=== PATIENT | male | born 1955 | race Caucasian/White ===

== ENCOUNTER → 2017-06-09 | Outpatient (CLI) | payer MEDICARE ==
[2017-06-09 09:36] LABS: Albumin 4.6 g/dL (3.5-5.0); Calcium 9.6 mg/dL (8.4-10.2); Magnesium 1.9 mg/dL (1.6-2.3); Phosphorus 3.6 mg/dL (2.5-4.5); Potassium 4.8 mmol/L (3.5-5.1); Total Bilirubin 0.7 mg/dL (0.2-1.3); Total Protein 8.1 g/dL (6.3-8.2); Uric Acid 8.6 mg/dL (3.5-8.5)
[2017-06-09 09:39] LABS: Basophils % (A) 1 %; Eosinophils # (A) 0.2 k/uL (0-0.7); Eosinophils % (A) 5 %; HGB 13.5 gm/dL (13.0-17.5); Lymphocytes # (A) 0.7 k/uL (1.0-4.8); Lymphocytes % (A) 20 %; MCH 27.4 pg (25.0-35.0); MCHC 33.7 g/dL (31.0-37.0); MCV 81.4 fL (80.0-100.0); Mean Platelet Volume 7.7; Monocytes # (A) 0.4 k/uL (0-1.0); Monocytes % (A) 12 %; Neutrophils % (A) 58 %; Platelet Count 168 k/uL (150-450); RBC 4.91 m/uL (4.30-5.90); WBC 3.4 k/uL (3.8-10.6)
[2017-06-09 09:53] LABS: T4, Free (Free Thyroxine) 1.01 ng/dL (0.78-2.19)
[2017-06-09 10:07] LABS: Prostate Specific Antigen 2.2 ng/mL (0.00-4.00)
[2017-06-09 15:49] LABS: Parathyroid Hormone Intact 56.9 pg/mL (14.0-72.0)
[2017-06-09 16:51] LABS: Iron Saturation 19.79 (15.00-50.00)
[2017-06-09 17:00] LABS: Vitamin D 25 Hydroxy 28.7 ng/mL (30.0-100.0)
[2017-06-09 20:04] LABS: Hemoglobin A1C 5.5 % (4.0-6.0)
== END | disposition home or self-care (01) ==
LOC: LABWHC1 08:32
PROVIDERS: ATTEND Internal Medicine
DX: M10.00 Idiopathic gout, unspecified site (principal); N18.3 Chronic kidney disease, stage 3 (moderate); B18.2 Chronic viral hepatitis C; N40.0 Benign prostatic hyperplasia without lower urinary tract symptoms
CPT/HCPCS: 36415; 80053; 80061; 82306; 82550; 82728; 83036; 83540; 83550; 83735; 83970; 84100; 84153; 84439; 84443; 84550; 85025

== ENCOUNTER 2018-09-20 10:56 | Emergency (ER) | payer MEDICARE ==
[2018-09-20 11:10] VITALS: BP 125/83; PULSE 75; RESP 16; TEMP 97.5
[2018-09-20] MEDS ORDERED: LIDOCAINE 1% INJ 10MG/ML (20 ML MDV) SQ ONE (11:21)
[2018-09-20] MEDS ORDERED: CLINDAMYCIN 150 MG CAP PO STA (11:36)
--- NOTE | 2018-09-20 11:45 | ED ---
General Adult HPI - General Chief complaint: Skin/Abscess/Foreign Body Stated complaint: cyst Time Seen by Provider: 09/20/18 11:15 Source: patient, family, RN notes reviewed Mode of arrival: ambulatory Limitations: no limitations - History of Present Illness Initial comments: Patient is a pleasant [age]-year-old male presenting to the emergency Depart ment with complaints of pilonidal cyst. Patient did have similar episode once previously several years ago. Patient did have it drained and provided by surgeon, Dr. Johnson. Patient noticed symptoms returning a couple of days ago. Patient states it was draining however seem so stopped. Patient has some discomfort in the pilonidal region. No fevers. No other area of discomfort. Patient is on cyclosporine secondary to previous transplant. - Related Data Home Medications Medication Instructions Recorded Confirmed Mycophenolate Mofetil [Cellcept] 150 mg PO DAILY 08/02/13 08/02/13 Pegasus 90 mg PO WEEKLY 08/02/13 08/02/13 Ribibrian 1 tab PO DAILY 08/02/13 08/02/13 Solvaldi 1 tab PO DAILY 08/02/13 08/02/13 Ursodiol [Telma] 250 mg PO BID 08/02/13 08/02/13 cycloSPORINE [Sandimmune] 150 mg PO DAILY 08/02/13 08/02/13 Previous Rx's Medication Instructions Recorded Cephalexin [Keflex] 500 mg PO Q6HR 10 Days cap 08/02/13 Indomethacin [Indocin] 50 mg PO Q8HR #42 capsule 08/02/13 oxyCODONE HCL/ACETAMINOPHEN 1 each PO Q6HR PRN #12 tab 08/02/13 [Percocet 5-325 mg] Clindamycin [Cleocin] 300 mg PO Q6H #80 capsule 09/20/18 Allergies Allergy/AdvReac Type Severity Reaction Status Date / Time No Known Allergies Allergy Verified 09/20/18 11:09 Review of Systems ROS Statement: Those systems with pertinent positive or pertinent negative responses have been documented in the HPI. ROS Other: All systems not noted in ROS Statement are negative. Constitutional: Denies: fever, chills Eyes: Denies: eye pain ENT: Denies: ear pain Respiratory: Denies: cough Cardiovascular: Denies: chest pain Endocrine: Denies: fatigue Gastrointestinal: Denies: abdominal pain Genitourinary: Denies: dysuria Musculoskeletal: Denies: back pain Skin: Reports: as per HPI Neurological: Denies: headache Past Medical History Past Medical History: Liver Disease Additional Past Medical History / Comment(s): HEPATITIS C- BEEN DORMANT NOW FOR 2 YRS History of Any Multi-Drug Resistant Organisms: None Reported Past Surgical History: Orthopedic Surgery Additional Past Surgical History / Comment(s): liver transplant Past Psychological History: No Psychological Hx Reported Smoking Status: Never smoker Past Alcohol Use History: None Reported Past Drug Use History: None Reported General Exam Limitations: no limitations General appearance: alert, in no apparent distress Head exam: Present: atraumatic Eye exam: Present: normal appearance Respiratory exam: Present: normal lung sounds bilaterally Cardiovascular Exam: Present: regular rate, normal rhythm GI/Abdominal exam: Present: soft. Absent: tenderness Extremities exam: Present: normal inspection Neurological exam: Present: alert Psychiatric exam: Present: normal affect, normal mood Skin exam: Present: other (Bilateral region with area of mild cellulitic change approximate 2 cm. There is a central area approximately half centimeter with raised and fluctuance consistent with early abscess formation.) Course Vital Signs 09/20/18 11:07 Temperature 97.5 F L Pulse Rate 75 Respiratory 16 Rate Blood Pressure 125/83 O2 Sat by Pulse 99 Oximetry Procedures - Incision & Drainage Consent Obtained: verbal consent Site: other (Pilonidal) Size (cm): 1 Anesthetic Used: lidocaine 1% I&D Cleaning Method: Betadine Scalpel Used: #11 I&D Drainage Obtained: Pus (Approximate one cc) Culture Obtained?: Yes Patient Tolerated Procedure: well, no complications Medical Decision Making - Medical Decision Making Patient had minimal early abscess formation. Area was opened. Area is too small to pack. Secondary to patient's history he'll be covered with antibiotics and recommended close follow-up. Dr. Johnson is currently out of town. Patient will be provided follow-up for on-call surgeon and primary care physician. Disposition Clinical Impression: Pilonidal cyst with abscess Disposition: HOME SELF-CARE Condition: Stable Instructions (If sedation given, give patient instructions): Abscess (ED), Pilonidal Cyst (ED) Additional Instructions: Start antibiotics today. Follow-up with primary care physician or surgeon tomorrow. Return for fevers, illness, weakness, increased rash or redness, increased drainage, worsening symptoms or any other concerns at all. Please also follow-up with your transplant doctor in the next day or 2. [id number] sitz bath's. Keep area clean. Twice daily wash with soap and water. Have area inspected twice daily. Prescriptions: Clindamycin [Cleocin] 300 mg PO Q6H #80 capsule Is patient prescribed a controlled substance at d/c from ED?: No Referrals: Dayday Anthony MD [Primary Care Provider] - 1-2 days Manish Velasco MD [STAFF PHYSICIAN] - 1-2 days Time of Disposition: 11:44
== END 2018-09-20 11:55 | disposition home or self-care (01) ==
LOC: EC 10:56
DX: L05.01 Pilonidal cyst with abscess (principal); Z94.4 Liver transplant status
CPT/HCPCS: 87070; 87205; 99283; 10080; J2001

== ENCOUNTER → 2020-11-30 | Outpatient (CLI) | payer MEDICARE ==
--- NOTE | 2020-11-30 15:28 | NM ---
EXAMINATION TYPE: NM bone scan whole body DATE OF EXAM: 11/30/2020 COMPARISON: NONE HISTORY: Low back pain Delayed whole-body scanning was performed following the injection of 22.8 mCi Tc 99m MDP. Images acq uired 3 hours post injection. FINDINGS: Bandlike area of increased pharmaceutical uptake is present at what is believed to be L2. More mild u ptake is present in the lower lumbar spine. Uptake within the shoulders, elbows, wrists, hands, knees , feet and ankles is likely degenerative. Uptake in the cervical spine is likely due to facet arthrop athy change. IMPRESSION: Findings may represent osteoporotic compression fracture at L2, correlate. Osteoarthritic change.
== END | disposition home or self-care (01) ==
LOC: RADNMMAIN 09:45
PROVIDERS: ATTEND Physical Medicine & Rehabilitation
DX: M17.0 Bilateral primary osteoarthritis of knee (principal); M19.071 Primary osteoarthritis, right ankle and foot; M19.072 Primary osteoarthritis, left ankle and foot; M19.012 Primary osteoarthritis, left shoulder; M19.011 Primary osteoarthritis, right shoulder
CPT/HCPCS: 78306; A9503

== ENCOUNTER 2021-08-17 08:30 | Observation (INO) | payer MEDICARE ==
[2021-08-17 09:57] LABS: ALT 28 U/L (4-49); AST 40 U/L (17-59); African American GFR (CKD) 41 (>60 ml/min/1.73 sqM); Albumin 4.4 g/dL (3.5-5.0); Alkaline Phosphatase 89 U/L (38-126); Anion Gap 8 mmol/L; Blood Urea Nitrogen 38 mg/dL (9-20); C Reactive Protein <0.5 mg/dL (<1.0); Calcium 8.9 mg/dL (8.4-10.2); Carbon Dioxide 23 mmol/L (22-30); Chloride 109 mmol/L (98-107); Glucose 111 mg/dL (74-99); Non-African American GFR(CKD) 36 (>60 ml/min/1.73 sqM); Potassium 4.7 mmol/L (3.5-5.1); Sodium 140 mmol/L (137-145); Total Bilirubin 0.5 mg/dL (0.2-1.3); Total Protein 7.4 g/dL (6.3-8.2)
--- NOTE | 2021-08-17 10:03 | XR ---
EXAMINATION TYPE: XR hand complete LT DATE OF EXAM: 08/17/2021 COMPARISON: NONE HISTORY: Pain TECHNIQUE: Three views are submitted. FINDINGS: The osseous structures are intact. There is severe narrowing in MCP joints bilaterally with hypertrop hic spurring of the second, third and fourth digits. Mild narrowing of the scaphoid radial joint. IMPRESSION: 1. Severe arthropathy of the second through fourth digits.
[2021-08-17 10:06] LABS: Basophils % (A) 1 %; Eosinophils # (A) 0.2 k/uL (0-0.7); Eosinophils % (A) 5 %; HCT 33.4 % (39.0-53.0); HGB 11.6 gm/dL (13.0-17.5); Lymphocytes # (A) 0.9 k/uL (1.0-4.8); Lymphocytes % (A) 21 %; MCH 29.7 pg (25.0-35.0); MCHC 34.7 g/dL (31.0-37.0); MCV 85.6 fL (80.0-100.0); Mean Platelet Volume 7.8; Monocytes # (A) 0.3 k/uL (0-1.0); Monocytes % (A) 8 %; Neutrophils # (A) 2.7 k/uL (1.3-7.7); Neutrophils % (A) 63 %; Platelet Count 219 k/uL (150-450); WBC 4.2 k/uL (3.8-10.6)
--- NOTE | 2021-08-17 10:27 | ED ---
Extremity Problem HPI - General Chief complaint: Extremity Problem,Nontraumatic Stated complaint: hand swelling Time Seen by Provider: 08/17/21 08:42 Source: patient, RN notes reviewed Mode of arrival: ambulatory Limitations: no limitations - History of Present Illness Initial comments: This a 65-year-old male presents emergency Department with chief complaint of left hand wrist infection. Patient states that 3 weeks ago he a small area of basal cell carcinoma which was removed by shop clerk. Patient states that shortly after he developed increasing redness and swelling. He has been on multiple antibiotics with no significant improvement. He is sent in by dermatology for field outpatient treatment and cellulitis is concerning as is liver transplant patient. Patient reports no fever or sweats. Patient states is moderate discomfort. - Related Data Home Medications Medication Instructions Recorded Confirmed Pegasus 90 mg PO WEEKLY 08/02/13 08/02/13 Ribibrian 1 tab PO DAILY 08/02/13 08/02/13 Solvaldi 1 tab PO DAILY 08/02/13 08/02/13 cycloSPORINE [Sandimmune] 150 mg PO DAILY 08/02/13 08/02/13 mycophenolate mofetiL [Cellcept] 150 mg PO DAILY 08/02/13 08/02/13 ursodioL [Telma] 250 mg PO BID 08/02/13 08/02/13 Previous Rx's Medication Instructions Recorded Cephalexin [Keflex] 500 mg PO Q6HR 10 Days cap 08/02/13 Indomethacin [Indocin] 50 mg PO Q8HR #42 capsule 08/02/13 oxyCODONE HCL/ACETAMINOPHEN 1 each PO Q6HR PRN #12 tab 08/02/13 [Percocet 5-325 mg] Clindamycin [Cleocin] 300 mg PO Q6H #80 capsule 09/20/18 Allergies Allergy/AdvReac Type Severity Reaction Status Date / Time No Known Allergies Allergy Verified 08/17/21 08:34 Review of Systems ROS Statement: Those systems with pertinent positive or pertinent negative responses have been documented in the HPI. ROS Other: All systems not noted in ROS Statement are negative. Past Medical History Past Medical History: Cancer, Liver Disease Additional Past Medical History / Comment(s): HEPATITIS C- BEEN DORMANT NOW FOR 2 YRS, basil cell skin ca History of Any Multi-Drug Resistant Organisms: None Reported Past Surgical History: Orthopedic Surgery Additional Past Surgical History / Comment(s): liver transplant Past Psychological History: No Psychological Hx Reported Smoking Status: Never smoker Past Alcohol Use History: None Reported Past Drug Use History: None Reported General Exam Limitations: no limitations General appearance: alert, in no apparent distress Head exam: Present: atraumatic, normocephalic, normal inspection Eye exam: Present: normal appearance, PERRL, EOMI. Absent: scleral icterus, conjunctival injection, periorbital swelling ENT exam: Present: normal exam, normal oropharynx, mucous membranes moist Neck exam: Present: normal inspection, full ROM. Absent: tenderness, meningismus, lymphadenopathy Respiratory exam: Present: normal lung sounds bilaterally. Absent: respiratory distress, wheezes, rales, rhonchi, stridor Cardiovascular Exam: Present: regular rate, normal rhythm, normal heart sounds. Absent: systolic murmur, diastolic murmur, rubs, gallop, clicks Extremities exam: Present: other (Left wrist there is a healing wound noted with some increasing left hand swelling and erythema mild warmth with palpation pulses equal bilaterally) Course Vital Signs 08/17/21 08/17/21 08:30 10:00 Temperature 97.6 F 97.8 F Pulse Rate 72 64 Respiratory 18 18 Rate Blood Pressure 118/85 130/86 O2 Sat by Pulse 100 100 Oximetry Medical Decision Making - Medical Decision Making 65-year-old presented for left hand infection. Patient's failed outpatient treatment on dual antibiotic therapy. Patient has known liver transplant which is concerning for patient's infection patient will be admitted for IV antibiotics. - Lab Data Result diagrams: 08/17/21 09:16 08/17/21 09:16 Lab Results 08/17/21 08/17/21 08/17/21 Range/Units 09:16 09:16 09:16 WBC 4.2 (3.8-10.6) k/uL RBC 3.90 L (4.30-5.90) m/uL Hgb 11.6 L (13.0-17.5) gm/dL Hct 33.4 L (39.0-53.0) % MCV 85.6 (80.0-100.0) fL MCH 29.7 (25.0-35.0) pg MCHC 34.7 (31.0-37.0) g/dL RDW 13.0 (11.5-15.5) % Plt Count 219 (150-450) k/uL MPV 7.8 Neutrophils % 63 % Lymphocytes % 21 % Monocytes % 8 % Eosinophils % 5 % Basophils % 1 % Neutrophils # 2.7 (1.3-7.7) k/uL Lymphocytes # 0.9 L (1.0-4.8) k/uL Monocytes # 0.3 (0-1.0) k/uL Eosinophils # 0.2 (0-0.7) k/uL Basophils # 0.0 (0-0.2) k/uL Sodium 140 (137-145) mmol/L Potassium 4.7 (3.5-5.1) mmol/L Chloride 109 H (98-107) mmol/L Carbon Dioxide 23 (22-30) mmol/L Anion Gap 8 mmol/L BUN 38 H (9-20) mg/dL Creatinine 1.91 H (0.66-1.25) mg/dL Est GFR (CKD-EPI)AfAm 41 (>60 ml/min/1.73 sqM) Est GFR (CKD-EPI)NonAf 36 (>60 ml/min/1.73 sqM) Glucose 111 H (74-99) mg/dL Plasma Lactic Acid Wilfrido 1.4 (0.7-2.0) mmol/L Calcium 8.9 (8.4-10.2) mg/dL Total Bilirubin 0.5 (0.2-1.3) mg/dL AST 40 (17-59) U/L ALT 28 (4-49) U/L Alkaline Phosphatase 89 (38-126) U/L C-Reactive Protein <0.5 (<1.0) mg/dL Total Protein 7.4 (6.3-8.2) g/dL Albumin 4.4 (3.5-5.0) g/dL Disposition Clinical Impression: Cellulitis of left hand, Failure of outpatient treatment Disposition: ADMITTED IP TO THIS HOSP Condition: Fair Referrals: Dayday Anthony MD [Primary Care Provider] - 1-2 days Time of Disposition: 10:27
[2021-08-17] MEDS ORDERED: VANCOMYCIN IV PER PHARMACY 1 EACH MISC MISCELLANE PRN (10:45)
[2021-08-17] MEDS ORDERED: PIPERACILLIN-TAZOBACTAM 3.375 GM in SODIUM CHLORIDE 0.9% 100 ML IVPB ONE (11:00)
[2021-08-17] MEDS ORDERED: VANCOMYCIN 1,500 MG in SODIUM CHLORIDE 0.9% 250 ML IVPB ONE (11:30)
[2021-08-17] MEDS ORDERED: HYDROmorphone 1 MG/ML 1 ML SYRINGE IM PRN (13:17)
[2021-08-17] MEDS ORDERED: traMADol 50 MG TAB PO PRN (14:10)
--- NOTE | 2021-08-17 14:48 | P.HPIM ---
History of Present Illness H&P Date: 08/17/21 HISTORY OF PRESENT ILLNESS This is a 65-year-old male patient with past medical history of hypertension, hyperlipidemia, hepatitis C status post liver transplant, chronic kidney disease stage III, basal cell skin cancer. Patient gives history that he first had an ingrown toenail which was excised and this became infected and was treated with doxycycline, subsequently he had a small area of basal cell carcinoma that was removed by casing material weigher, Dr Siu at [facility] 3 weeks ago. Shortly after that he had increasing redness and swelling to the area. He compl eted course of doxycycline and right great toe infection was improved but he continued to have problems with the left hand at site of basal cell cancer excision. Patient was sent in by his casing material weigher for failed outpatient treatment and cellulitis concerning as a liver transplant patient. Patient denies having any fever or chills. Patient presented to [facility] emergency center. He was found to be afebrile, heart rate 72, blood pressure 118/85, pulse ox 100% on room air. WBC 4.2, hemoglobin 0.6 complaining of count 219. Sodium 140, potassium 4.7, chloride 109, CO2 23, BUN 38 and creatinine 1.91 with baseline about 1.8. Glucose 111. Lactic acid 1.4. Calcium 8.9. Total bilirubin 0.5, AST 40, ALT 28, alkaline phosphatase 28. C-reactive protein less than 0.5. Total protein 7.4 and albumin 4.4. Hand x-rays revealed severe arthropathy of the second through fourth digits. The patient received 1 dose of Zosyn and one dose of vancomycin, transitioned to Kefzol per infectious disease, blood cultures were obtained and patient admitted to the oncology unit. REVIEW OF SYSTEMS Constitutional: No fever, no chills, no night sweats. No weight change. No weakness, fatigue or lethargy. No daytime sleepiness. EENT: No headache. No blurred vision or double vision, no loss of vision. No loss of Hearing, no ringing in the ears, no dizziness. No nasal drainage or congestion. No epistaxis. No sore throat. Lungs: No shortness of breath, cough, no sputum production. No wheezing. Cardiovascular: No chest pain, no lower extremity edema. No palpitations. No paroxysmal nocturnal dyspnea. No orthopnea. No lightheadedness or dizziness. No syncopal episodes. Abdominal: No abdominal pain. No nausea, vomiting. No diarrhea. No constipa tion. No bloody or tarry stools. No loss of appetite. Genitourinary: No dysuria, increased frequency, urgency. No urinary retention. Musculoskeletal: No myalgias. No muscle weakness, no gait dysfunction, no frequent falls. No back pain. No neck pain. Integumentary: Left hand/wrist wound, no lesions. No rash or pruritus. No unusual bruising. No change in hair or nails. Neurologic: No aphasia. No facial droop. No change in mentation. No head injury. No headache. No paralysis. No paresthesia. Psychiatric: No depression. No anxiety. No mood swings. Endocrine: No abnormal blood sugars. No weight change. No excessive sweating or thirst. No cold intolerance. MEDICAL HISTORY Hypertension Hyperlipidemia Hepatitis C Chronic kidney disease stage III Basal cell skin cancer SURGICAL HISTORY Basal cell skin cancer removal Liver transplant SOCIAL HISTORY Patient is a nonsmoker, no alcohol use, marijuana use or illicit drug use. Patient lives at home with his . FAMILY HISTORY Father at age 88 with hx of ASHD. Mother at age 86 with history of melanoma. He has one brother alive with no ajor medical problem. Patient has one sister from loung cancer. Patient has one daughter with no major medical problems.. PHYSICAL EXAMINATION Gen: This is a 65-year-old male. He is resting in bed appears to be comfortable and in no acute distress HEENT: Head is atraumatic, normocephalic. Pupils equal, round. Sclerae is anicteric. NECK: Supple. No JVD. No lymphadenopathy. No thyromegaly. LUNGS: Clear to auscultation. No wheezes or rhonchi. No intercostal retractions. HEART: First heart sound is depressed, second heart sound is normal, 2/6 systoli c ejection murmur at left sternal border, no S3, no S4.. ABDOMEN: Soft. Bowel sounds are present. No masses. No tenderness. EXTREMITIES: No pedal edema. No calf tenderness. Mild edema and redness to the left hand dorsal wrist NEUROLOGICAL: Patient is awake, alert and oriented x3. Cranial nerves 2 through 12 are grossly intact. ASSESSMENT AND PLAN 1. Nonhealing wound left hand and wrist at site of basal cell skin cancer resection, failed outpatient treatment. Consult with infectious disease appreciated, antibiotics transition to Kefzol 2 g IV piggyback every 8 hours, continue Dilaudid 1 mg IV push every 4 hours as needed for pain or tramadol 50 mg 3 times daily as needed. 2. History of liver transplant. Continue cyclosporine 25 mg twice daily, Everolimus 0.75 mg 3 times daily, Actigall 300 mg twice daily. 3. Hypertension. Continue Coreg 3.125 mg daily and lisinopril 5 mg daily. 4. Hyperlipidemia. Continue Lipitor 20 mg daily. 5. GI prophylaxis. Protonix 40 mg oral daily. 6. DVT prophylaxis. Heparin subcu. Patient will be admitted to the hospital for a minimum of 2 night stay. DISCHARGE PLAN Home. Impression and plan of care have been directed as dictated by the signing physician. Dionne Heredia nurse practitioner acting as scribe for signing physician. Past Medical History Past Medical History: Cancer, Liver Disease Additional Past Medical History / Comment(s): HEPATITIS C- BEEN DORMANT NOW FOR 2 YRS, basil cell skin ca History of Any Multi-Drug Resistant Organisms: None Reported Past Surgical History: Orthopedic Surgery Additional Past Surgical History / Comment(s): liver transplant Past Anesthesia/Blood Transfusion Reactions: No Reported Reaction Past Psychological History: No Psychological Hx Reported Smoking Status: Never smoker Past Alcohol Use History: None Reported Past Drug Use History: None Reported - Past Family History Mother Family Medical History: Cancer Medications and Allergies Home Medications Medication Instructions Recorded Confirmed Type Atorvastatin [Lipitor] 20 mg PO DAILY 08/17/21 08/17/21 History Cholecalciferol (Vitamin D3) 75 mcg PO DAILY 08/17/21 08/17/21 History [Vitamin D3 (3000 Iu)] Everolimus 0.75 mg PO TID 08/17/21 08/17/21 History Fish Oil/Dha/Epa [Fish Oil 1,200 1 cap PO DAILY 08/17/21 08/17/21 History mg Fish Oil] Vitamin B Complex 1 cap PO DAILY 08/17/21 08/17/21 History Zinc Gluconate [Zinc] 50 mg PO DAILY 08/17/21 08/17/21 History carvediloL [Coreg] 3.125 mg PO DAILY 08/17/21 08/17/21 History clindamycin HCL 300 mg PO QID 08/17/21 08/17/21 History cycloSPORINE [cycloSPORINE (GEQ 25 mg PO BID 08/17/21 08/17/21 History for SandIMMUNE)] lisinopriL [Zestril] 5 mg PO DAILY 08/17/21 08/17/21 History traMADol HCL 50 mg PO TID PRN 08/17/21 08/17/21 History ursodioL [Actigall] 300 mg PO BID 08/17/21 08/17/21 History Allergies Allergy/AdvReac Type Severity Reaction Status Date / Time No Known Allergies Allergy Verified 08/17/21 11:10 Physical Exam Vitals: Vital Signs Temp Pulse Pulse Resp BP BP Pulse Ox 08/17/21 12:17 98.8 F 59 L 15 129/80 99 08/17/21 11:46 97.3 F L 60 18 127/85 100 08/17/21 10:00 97.8 F 64 18 130/86 100 08/17/21 08:30 97.6 F 72 18 118/85 100 Intake and Output 08/16/21 08/17/21 08/17/21 22:59 06:59 14:59 Other: Weight 74.843 kg Results CBC & Chem 7: 08/17/21 09:16 08/17/21 09:16 Labs: Abnormal Lab Results - Last 24 Hours (Table) 08/17/21 08/17/21 Range/Units 09:16 09:16 RBC 3.90 L (4.30-5.90) m/uL Hgb 11.6 L (13.0-17.5) gm/dL Hct 33.4 L (39.0-53.0) % Lymphocytes # 0.9 L (1.0-4.8) k/uL Chloride 109 H (98-107) mmol/L BUN 38 H (9-20) mg/dL Creatinine 1.91 H (0.66-1.25) mg/dL Glucose 111 H (74-99) mg/dL Thrombosis Risk Factor Assmnt - Choose All That Apply Each Factor Represents 1 point: Medical pt on bed rest Other Risk Factors: Yes (organ transplant patient) Other congenital or acquired thrombophilia - If yes, enter type in comment: No Thrombosis Risk Factor Assessment Total Risk Factor Score: 1 Thrombosis Risk Factor Assessment Level: Low Risk
[2021-08-17] MEDS: EVEROLIMUS 0.75 MG PO SCH ×2 (16:19→22:41)
[2021-08-17] MEDS: HYDROmorphone 1 MG/ML 1 ML SYRINGE IVP PRN ×2 (17:46→22:10)
[2021-08-17] MEDS ORDERED: PIPERACILLIN-TAZOBACTAM 3.375 GM in SODIUM CHLORIDE 0.9% 100 ML IVPB SCH (18:00)
[2021-08-17] MEDS: HEPARIN SODIUM,PORCINE/PF 5,000 UNIT/0.5 ML SYRINGE SQ SCH (22:03)
[2021-08-17] MEDS: cycloSPORINE 25 MG CAP PO SCH (22:41)
[2021-08-17] MEDS: ursodioL 300 MG CAP PO SCH (22:41)
--- NOTE | 2021-08-17 23:28 | P.CONS ---
History of Present Illness - Reason for Consult Consult date: 08/17/21 Left forearm cellulitis Requesting physician: Dayday Anthony - Chief Complaint Swelling and redness to left forearm x few weeks - History of Present Illness Patient is a 65-year male with a past medical history significant for liver transplant on immunosuppressive medication patient recently did have a skin cancer removed/biopsied on the dorsal aspect of the left forearm patient mention started having increasing pain swelling redness and drainage after the surgery and the patient has been treated by her logistics service representative with oral doxycycline and clindamycin however the patient did not have any improvement as the patient presented to the hospital, patient complaining of pain which is mostly dull aching to sharp 6-7 out of 10 no radiation with associated swelling redness and did have mild drainage, patient on presentation to the hospital was afebrile and no fever have been recorded subsequently patient did have normal white count with some lymphopenia BUN/creatinine was mildly elevated liver exams are normal patient was started on vancomycin and Zosyn infectious disease was consulted for further management of antibiotic therapy patient did have x-ray of the hand which shows some severe arthropathy of the second through fourth digits Review of Systems Positive point has been mentioned in the HPI rest of the systems are negative Past Medical History Past Medical History: Cancer, Liver Disease Additional Past Medical History / Comment(s): HEPATITIS C- BEEN DORMANT NOW FOR 2 YRS, basil cell skin ca History of Any Multi-Drug Resistant Organisms: None Reported Past Surgical History: Orthopedic Surgery Additional Past Surgical History / Comment(s): liver transplant Past Psychological History: No Psychological Hx Reported Smoking Status: Never smoker Past Alcohol Use History: None Reported Past Drug Use History: None Reported - Past Family History Mother Family Medical History: Cancer Medications and Allergies Home Medications Medication Instructions Recorded Confirmed Type Atorvastatin [Lipitor] 20 mg PO DAILY 08/17/21 08/17/21 History Cholecalciferol (Vitamin D3) 75 mcg PO DAILY 08/17/21 08/17/21 History [Vitamin D3 (3000 Iu)] Everolimus 0.75 mg PO TID 08/17/21 08/17/21 History Fish Oil/Dha/Epa [Fish Oil 1,200 1 cap PO DAILY 08/17/21 08/17/21 History mg Fish Oil] Vitamin B Complex 1 cap PO DAILY 08/17/21 08/17/21 History Zinc Gluconate [Zinc] 50 mg PO DAILY 08/17/21 08/17/21 History carvediloL [Coreg] 3.125 mg PO DAILY 08/17/21 08/17/21 History clindamycin HCL 300 mg PO QID 08/17/21 08/17/21 History cycloSPORINE [cycloSPORINE (GEQ 25 mg PO BID 08/17/21 08/17/21 History for SandIMMUNE)] lisinopriL [Zestril] 5 mg PO DAILY 08/17/21 08/17/21 History traMADol HCL 50 mg PO TID PRN 08/17/21 08/17/21 History ursodioL [Actigall] 300 mg PO BID 08/17/21 08/17/21 History Allergies Allergy/AdvReac Type Severity Reaction Status Date / Time No Known Allergies Allergy Verified 08/17/21 11:10 Physical Exam Vitals: Vital Signs Temp Pulse Resp BP Pulse Ox 08/17/21 11:46 97.3 F L 60 18 127/85 100 08/17/21 10:00 97.8 F 64 18 130/86 100 08/17/21 08:30 97.6 F 72 18 118/85 100 Intake and Output 08/16/21 08/17/21 08/17/21 22:59 06:59 14:59 Other: Weight 74.843 kg GENERAL DESCRIPTION: Annually male up in the chair, no distress. No tachypnea or accessory muscle of respiration use. HEENT: Shows Pallor , no scleral icterus. Oral mucous membrane is dry. No pharyngeal erythema or thrush NECK: Trachea central, no thyromegaly. LUNGS: Unlabored breathing. Clear to auscultation anteriorly. No wheeze or crackle. HEART: S1, S2, regular rate and rhythm. No loud murmur ABDOMEN: Soft, no tenderness , guarding or rigidity, no organomegaly EXTREMITIES: Left forearm dorsum did have a superficial ulceration with surrounding redness no foul-smelling drainage. SKIN: No rash, no masses palpable. NEUROLOGICAL: The patient is awake, alert, oriented x3, mood and affect normal. Results CBC & Chem 7: 08/17/21 09:16 08/17/21 09:16 Labs: Abnormal Lab Results - Last 24 Hours (Table) 08/17/21 08/17/21 Range/Units 09:16 09:16 RBC 3.90 L (4.30-5.90) m/uL Hgb 11.6 L (13.0-17.5) gm/dL Hct 33.4 L (39.0-53.0) % Lymphocytes # 0.9 L (1.0-4.8) k/uL Chloride 109 H (98-107) mmol/L BUN 38 H (9-20) mg/dL Creatinine 1.91 H (0.66-1.25) mg/dL Glucose 111 H (74-99) mg/dL Assessment and Plan (1) Cellulitis of left hand Current Visit: Yes Status: Acute Code(s): L03.114 - CELLULITIS OF LEFT UPPER LIMB SNOMED Code(s): 60785372 (2) Failure of outpatient treatment Current Visit: Yes Status: Acute Code(s): Z78.9 - OTHER SPECIFIED HEALTH STATUS SNOMED Code(s): 116609847 Plan: 1patient presented hospital with a left forearm cellulitis/wound infection in this patient who did have recent resection of his skin cancer with nonhealing wound and cellulitis outpatient cultures done on 08/09/2021 were positive for MSSA and Klebsiella and failed responding to the Doxy and clindamycin therapy. 2patient with the history of liver transplant on immunosuppressive medication. 3renal insufficiency and high risk of nephrotoxicity. 4discontinue vancomycin and Zosyn to decrease risk of nephrotoxicity. 5we will start the patient on cefazolin 2 g every 8 hours. We will follow on clinical condition and cultures to further adjust medication if needed Thank you for this consultation will follow this patient along with you Time with Patient: Greater than 30
[2021-08-18] MEDS ORDERED: VANCOMYCIN 1,250 MG in SODIUM CHLORIDE 0.9% 250 ML IVPB SCH (06:00)
[2021-08-18] MEDS: HYDROmorphone 1 MG/ML 1 ML SYRINGE IVP PRN ×3 (06:20→15:13)
[2021-08-18] MEDS: lisinopriL 5 MG TAB PO SCH (07:34)
[2021-08-18] MEDS: PANTOPRAZOLE 40 MG TABLET PO SCH (07:34)
[2021-08-18] MEDS: HEPARIN SODIUM,PORCINE/PF 5,000 UNIT/0.5 ML SYRINGE SQ SCH ×2 (07:34→22:11)
[2021-08-18] MEDS: ATORVASTATIN 20 MG TAB PO SCH (07:34)
[2021-08-18] MEDS: ZINC SULFATE 220 MG CAP PO SCH (07:34)
[2021-08-18] MEDS: CHOLECALCIFEROL 25 MCG (1000 IU) TABLET PO SCH (07:34)
[2021-08-18] MEDS: carvediloL 3.125 MG TAB PO SCH (07:34)
[2021-08-18] MEDS: cycloSPORINE 25 MG CAP PO SCH ×2 (07:35→21:46)
[2021-08-18] MEDS: ursodioL 300 MG CAP PO SCH ×2 (07:36→21:46)
[2021-08-18 07:50] LABS: African American GFR (CKD) 45 (>60 ml/min/1.73 sqM); Anion Gap 7 mmol/L; Blood Urea Nitrogen 34 mg/dL (9-20); Calcium 8.5 mg/dL (8.4-10.2); Carbon Dioxide 22 mmol/L (22-30); Chloride 108 mmol/L (98-107); Glucose 99 mg/dL (74-99); Non-African American GFR(CKD) 39 (>60 ml/min/1.73 sqM); Potassium 4.8 mmol/L (3.5-5.1); Sodium 137 mmol/L (137-145)
[2021-08-18] MEDS ORDERED: NON FORMULARY DRUG (Vitamin B Complex [Vitamin B Complex] 1 EACH Capsule) PO SCH (09:00)
--- NOTE | 2021-08-18 14:13 | PN ---
PROGRESS NOTE DATE OF SERVICE: 08/18/2021 This 65-year-old gentleman who was admitted with hand cellulitis also is immunosuppressed. Patient is on broad spectrum IV antibiotics. Cultures are negative so far. No chest pain. No palpitations. PHYSICAL EXAMINATION: Pulse 67, blood pressure ntd, respiration 18. CHEST: Clear to auscultation. CARDIOVASCULAR: S1, S2 muffled. ABDOMEN: Soft. NERVOUS SYSTEM: No focal deficit. EXAMINATION OF THE LEFT HAND: Skin infection present. LABS: Creatinine 1.79. ASSESSMENT: 1. Non-healing wound of the left hand and wrist at the site of the basal cell cancer resection. 2. History of liver transplant. 3. Hypertension. 4. Hyperlipidemia. RECOMMENDATIONS AND DISCUSSION: I recommend to continue current medications, continue with the monitoring, symptomatic treatment. Repeat labs tomorrow. Closely follow. Further recommendations to follow. MMDALEL / GERALDN: [id number] / MTDD
[2021-08-18] MEDS: EVEROLIMUS 0.75 MG PO SCH ×3 (15:15→23:06)
[2021-08-18] MEDS ORDERED: SENNOSIDES-DOCUSATE SODIUM 1 EACH TAB PO PRN (17:00)
[2021-08-19 04:18] VITALS: RESP 16
[2021-08-19] MEDS: CHOLECALCIFEROL 25 MCG (1000 IU) TABLET PO SCH (08:03)
[2021-08-19] MEDS: PANTOPRAZOLE 40 MG TABLET PO SCH (08:04)
[2021-08-19] MEDS: ursodioL 300 MG CAP PO SCH (08:04)
[2021-08-19] MEDS: ATORVASTATIN 20 MG TAB PO SCH (08:05)
[2021-08-19] MEDS: lisinopriL 5 MG TAB PO SCH (08:05)
[2021-08-19] MEDS: carvediloL 3.125 MG TAB PO SCH (08:06)
[2021-08-19] MEDS: ZINC SULFATE 220 MG CAP PO SCH (08:06)
[2021-08-19] MEDS: cycloSPORINE 25 MG CAP PO SCH (08:06)
[2021-08-19] MEDS: EVEROLIMUS 0.75 MG PO SCH (08:07)
[2021-08-19] MEDS: HEPARIN SODIUM,PORCINE/PF 5,000 UNIT/0.5 ML SYRINGE SQ SCH (08:07)
[2021-08-19 11:57] LABS: Basophils # (A) 0.03 X 10*3/uL (0.00-0.10); Basophils % (A) 0.7 %; Eosinophils # (A) 0.15 X 10*3/uL (0.04-0.35); Eosinophils % (A) 3.6 %; HCT 36.8 % (39.6-50.0); HGB 11.6 g/dL (13.0-17.0); Immature Grans, Automated 0.2 %; Lymphocytes # (A) 0.89 X 10*3/uL (0.90-5.00); Lymphocytes % (A) 21.1 %; MCH 26.9 pg (27.0-32.0); MCHC 31.5 g/dL (32.0-37.0); MCV 85.4 fL (80.0-97.0); Mean Platelet Volume 10.7 fL (9.5-12.2); Monocytes # (A) 0.39 X 10*3/uL (0.20-1.00); Monocytes % (A) 9.2 %; NRBC Per 100 WBC 0 /100 WBCS (0.0-0.0); Neutrophils # (A) 2.75 X 10*3/uL (1.80-7.70); Neutrophils % (A) 65.2 %; Platelet Count 224 X 10*3/uL (140-440); RBC 4.31 X 10*6/uL (4.40-5.60); RDW 12.3 % (11.5-14.5); WBC 4.22 X 10*3/uL (4.50-10.00)
[2021-08-19 12:08] LABS: African American GFR (CKD) 47.6 (60.0-200.0); Albumin 4.4 g/dL (3.8-4.9); Albumin/Globulin Ratio 1.57 (1.60-3.17); Anion Gap 11.9 mmol/L (10.00-18.00); BUN/Creat Ratio 12.94 Ratio (12.00-20.00); Calcium 9.5 mg/dL (8.7-10.3); Carbon Dioxide 21.1 mmol/L (20.0-27.5); Globulin 2.8 g/dL (1.6-3.3); Non-African American GFR(CKD) 41.1 (60.0-200.0); Potassium 4.8 mmol/L (3.5-5.5); Total Bilirubin 0.3 mg/dL (0.30-1.20); Total Protein 7.2 g/dL (6.2-8.2)
[2021-08-19 13:53] VITALS: BP 132/74; PULSE 81; TEMP 97.9
--- NOTE | 2021-08-22 09:28 | P.DS ---
Providers Date of admission: 08/17/21 10:52 Expected date of discharge: 08/19/21 Attending physician: Dayday Anthony Consults: 08/17/21 10:27 Consult Physician Urgent Consulting Provider: Benjamin Thakkar Consult Reason/Comments: Cellulitis failure of outpatient treatment Do you want consulting provider notified?: Yes Primary care physician: Dayday Anthony Hospital Course: Final diagnosis Nonhealing wound of the left hand and wrist at the site of the basal cell cancer resection History of liver transplant Hypertension Hyperlipidemia Discharge disposition Patient is being discharged in a stable condition with guarded prognosis to home . Patient will follow-up with Gabrielle in the outpatient setting upon discharge. Patient is to also follow-up with infectious disease Dr. Thakkar in one week. Patient will continue on oral Keflex 500 mg 4 times daily for the next 10 days. Recommend repeat labs to monitor CBC and BMP in the outpatient setting. Total time taken is greater than 35 minutes. Hospital course This is a 65-year-old male who was recently admitted with left hand cellulitis and also immunocompromised. Patient apparently was failed outpatient therapy and came here for worsening pain and swelling to the left hand. Patient was evaluated by infectious disease and maintained on IV antibiotics showing clinical improvement and cultures remain negative. Patient will continue with local wound care and close outpatient follow-up with Dr. Thakkar at the wound center in 1 week. Patient to continue on Keflex 500 mg every 6 hours for the next 10 days. Recommend repeat labs of CBC and BMP and a prescription was provided and encourage the patient follow-up with primary care provider this week. Currently no reports of chest pain, shortness of breath, or palpitations. Patient is afebrile. No reports of nausea or vomiting and patient is tolerating diet. Patient will be discharged home today. On exam vital signs are stable. Cardio S1, S2 are muffled. Respiratory system shows diminished breath sounds at the bases with no wheezing or rhonchi noted. Abdomen is soft and obese, and nontender. Nervous system shows no focal deficits. Please refer to medication reconciliation sheet for a list of medications. The impression and plan of care has been dictated by Chika Ross, Nurse Practitioner as directed. Dr. Jhonatan MD I have performed a history and examination and MDM of this patient, discussed the same with the dictator, and agree with the dictator's assessment and plan as written ,documented as a scribe. Based on total visit time, I have performed more than 50% of the visit. Patient Condition at Discharge: Fair Plan - Discharge Summary Discharge Rx Participant: No New Discharge Prescriptions: New Cephalexin [Keflex] 500 mg PO Q6HR 10 Days #40 cap Continue Everolimus 0.75 mg PO TID Atorvastatin [Lipitor] 20 mg PO DAILY carvediloL [Coreg] 3.125 mg PO DAILY Vitamin B Complex 1 cap PO DAILY Fish Oil/Dha/Epa [Fish Oil 1,200 mg Fish Oil] 1 cap PO DAILY Cholecalciferol (Vitamin D3) [Vitamin D3 (3000 Iu)] 75 mcg PO DAILY ursodioL [Actigall] 300 mg PO BID traMADol HCL 50 mg PO TID PRN PRN Reason: Pain lisinopriL [Zestril] 5 mg PO DAILY cycloSPORINE [SandIMMUNE] 25 mg PO BID Zinc Gluconate [Zinc] 50 mg PO DAILY Discontinued clindamycin HCL 300 mg PO QID Discharge Medication List Atorvastatin [Lipitor] 20 mg PO DAILY 08/17/21 [History] Cholecalciferol (Vitamin D3) [Vitamin D3 (3000 Iu)] 75 mcg PO DAILY 08/17/21 [History] Everolimus 0.75 mg PO TID 08/17/21 [History] Fish Oil/Dha/Epa [Fish Oil 1,200 mg Fish Oil] 1 cap PO DAILY 08/17/21 [History] Vitamin B Complex 1 cap PO DAILY 08/17/21 [History] Zinc Gluconate [Zinc] 50 mg PO DAILY 08/17/21 [History] carvediloL [Coreg] 3.125 mg PO DAILY 08/17/21 [History] cycloSPORINE [SandIMMUNE] 25 mg PO BID 08/17/21 [History] lisinopriL [Zestril] 5 mg PO DAILY 08/17/21 [History] traMADol HCL 50 mg PO TID PRN 08/17/21 [History] ursodioL [Actigall] 300 mg PO BID 08/17/21 [History] Cephalexin [Keflex] 500 mg PO Q6HR 10 Days #40 cap 08/19/21 [Rx] Follow up Appointment(s)/Referral(s): Dayday Anthony MD [Primary Care Provider] - 1-2 days Benjamin Thakkar MD [STAFF PHYSICIAN] - 1 Week Ambulatory/Diagnostic Orders: Complete Blood Count w/diff [LAB.AMB] Time Frame: 3 Days, Location: None Selected Patient Instructions/Handouts: Cellulitis (ED) Activity/Diet/Wound Care/Special Instructions: Activity Limited until follow-up Follow-up with primary care provider on discharge Follow-up with infectious disease in the next 1 week Continue taking antibiotics as prescribed Continue with local wound care and avoid touching the area Repeat labs in 2-3 days to monitor CBC and BMP Discharge Disposition: HOME SELF-CARE
--- NOTE | 2021-08-25 22:30 | P.PN ---
Subjective Progress Note Date: 08/18/21 Principal diagnosis: Left upper extremity wound and cellulitis Patient is a 65-year-old male with a past medical history significant for liver transplant on immunosuppressive with the recent skin cancer removed from dorsum aspect of the left forearm with subsequent development of cellulitis failing outpatient oral antibiotic therapy. On today's evaluation that is 08/18/2021, the patient denies having any fever or chills, the patient is a breathing comfortably left upper extremity swelling or redness slightly decreased no drainage and no chest pain shortness of breath or cough no gum pain no diarrhea Objective - Vital Signs Vital signs: Vital Signs Temp 98.5 F 08/18/21 13:00 Pulse 67 08/18/21 13:00 Resp 18 08/18/21 13:00 BP 151/83 08/18/21 13:00 Pulse Ox 100 08/18/21 13:00 FiO2 Intake & Output 08/17/21 08/18/21 08/18/21 18:59 06:59 18:59 Intake Total 1560 500 Balance 1560 500 Weight 74.843 kg Intake: Intake, IV Titration 400 Amount Piperacillin-Tazobactam 3 100 .375 gm In Sodium Chloride 0.9% 100 ml @ 200 mls/hr IVPB ONCE ONE Rx#:[id number] Vancomycin 1,500 mg In 250 Sodium Chloride 0.9% 250 ml @ 125 mls/hr IVPB ONCE ONE Rx#:[id number] ceFAZolin 2 gm In Sodium 50 Chloride 0.9% 50 ml @ 100 mls/hr IVPB Q8HR [facility] Rx# :[id number] Oral 1160 500 Other: Voiding Method Toilet # Voids 2 2 - Exam GENERAL DESCRIPTION: An elderly male lying in bed in no distress RESPIRATORY SYSTEM: Unlabored breathing , decreased breath sounds at bases HEART: S1 S2 regular rate and rhythm , ABDOMEN: Soft , no tenderness EXTREMITIES: Left forearm dorsum wound with minimal slough surrounding redness has decreased - Labs CBC & Chem 7: 08/19/21 07:25 08/19/21 07:25 Labs: Abnormal Lab Results - Last 24 Hours (Table) 08/18/21 Range/Units 07:02 Chloride 108 H (98-107) mmol/L BUN 34 H (9-20) mg/dL Creatinine 1.79 H (0.66-1.25) mg/dL Microbiology - Last 24 Hours (Table) 08/17/21 09:15 Blood Culture - Preliminary Blood No Growth after 24 hours 08/17/21 09:30 Blood Culture - Preliminary Blood No Growth after 24 hours Assessment and Plan (1) Cellulitis of left hand Status: Acute Code(s): L03.114 - CELLULITIS OF LEFT UPPER LIMB SNOMED Code(s): 07426417 (2) Failure of outpatient treatment Status: Acute Code(s): Z78.9 - OTHER SPECIFIED HEALTH STATUS SNOMED Code(s): 742368857 Plan: 1patient presented hospital with a left forearm cellulitis/wound infection in this patient who did have recent resection of his skin cancer with nonhealing wound and cellulitis outpatient cultures done on 08/09/2021 were positive for MSSA and Klebsiella and failed responding to the Doxy and clindamycin therapy. 2patient with the history of liver transplant on immunosuppressive medication. 3renal insufficiency and high risk of nephrotoxicity. 4patient to continue with cefazolin 2 g every 8 hours and local wound care with them and honey followed by moist dressing changes daily.
--- NOTE | 2021-08-25 22:33 | P.PN ---
Subjective Progress Note Date: 08/19/21 Principal diagnosis: Left upper extremity wound and cellulitis Patient is a 65-year-old male with a past medical history significant for liver transplant on immunosuppressive with the recent skin cancer removed from dorsum aspect of the left forearm with subsequent development of cellulitis failing outpatient oral antibiotic therapy. On today's evaluation that is 08/19/2021, the patient remains to be afebrile, the patient is a breathing comfortably on room air, the patient left upper extremity swelling or redness has decreased in intensity, there is no drainage and no chest pain shortness of breath or cough no abdominal pain no diarrhea Objective - Vital Signs Vital signs: Vital Signs Temp 98.4 F 08/19/21 07:46 Pulse 73 08/19/21 07:46 Resp 16 08/19/21 07:46 BP 156/89 08/19/21 07:46 Pulse Ox 99 08/19/21 07:46 FiO2 Intake & Output 08/18/21 08/19/21 08/19/21 18:59 06:59 18:59 Other: Voiding Method Toilet # Voids 5 2 - Exam GENERAL DESCRIPTION: An elderly male lying in bed in no distress RESPIRATORY SYSTEM: Unlabored breathing , decreased breath sounds at bases HEART: S1 S2 regular rate and rhythm , ABDOMEN: Soft , no tenderness EXTREMITIES: Left forearm dorsum wound with minimal slough surrounding redness has decreased - Labs CBC & Chem 7: 08/19/21 07:25 08/19/21 07:25 Labs: Abnormal Lab Results - Last 24 Hours (Table) 08/19/21 08/19/21 Range/Units 07:25 07:25 WBC 4.22 L (4.50-10.00) X 10*3/uL RBC 4.31 L (4.40-5.60) X 10*6/uL Hgb 11.6 L (13.0-17.0) g/dL Hct 36.8 L (39.6-50.0) % MCH 26.9 L (27.0-32.0) pg MCHC 31.5 L (32.0-37.0) g/dL Lymphocytes # 0.89 L (0.90-5.00) X 10*3/uL Creatinine 1.7 H (0.6-1.5) mg/dL Est GFR (CKD-EPI)AfAm 47.6 L (60.0-200.0) Est GFR (CKD-EPI)NonAf 41.1 L (60.0-200.0) Albumin/Globulin Ratio 1.57 L (1.60-3.17) g/dL Microbiology - Last 24 Hours (Table) 08/17/21 09:15 Blood Culture - Preliminary Blood No Growth after 48 hours 08/17/21 09:30 Blood Culture - Preliminary Blood No Growth after 48 hours Assessment and Plan (1) Cellulitis of left hand Status: Acute Code(s): L03.114 - CELLULITIS OF LEFT UPPER LIMB SNOMED Code(s): 81142373 (2) Failure of outpatient treatment Status: Acute Code(s): Z78.9 - OTHER SPECIFIED HEALTH STATUS SNOMED Code(s): 005338451 Plan: 1patient presented hospital with a left forearm cellulitis/wound infection in this patient who did have recent resection of his skin cancer with nonhealing wound and cellulitis outpatient cultures done on 08/09/2021 were positive for MSSA and Klebsiella and failed responding to the Doxy and clindamycin therapy. 2patient with the history of liver transplant on immunosuppressive medication. 3renal insufficiency and high risk of nephrotoxicity. 4patient seem to have shown clinical improvement with cefazolin 2 g every 8 hours, plan is to finish therapy with oral Keflex and local wound care with them and honey followed by moist dressing changes daily and close outpatient follow- up.
== END 2021-08-19 16:05 | disposition home or self-care (01) ==
LOC: EC 08:30 → INTOOBSV 10:52 → 5NMEDONC 10:52 → 4SSUR 08-18 06:37 → UNDODISIN 08-19 16:05
PROVIDERS: ADMIT Internal Medicine; ATTEND Internal Medicine
DX: T81.49XA Infection following a procedure, other surgical site, initial encounter (principal); L03.114 Cellulitis of left upper limb; Z94.4 Liver transplant status; D84.9 Immunodeficiency, unspecified; I12.9 Hypertensive chronic kidney disease with stage 1 through stage 4 chronic kidney disease, or unspecified chronic kidney disease; N18.30 Chronic kidney disease, stage 3 unspecified; C44.619 Basal cell carcinoma of skin of left upper limb, including shoulder; B19.20 Unspecified viral hepatitis C without hepatic coma; E78.5 Hyperlipidemia, unspecified; M12.9 Arthropathy, unspecified; E66.9 Obesity, unspecified; Z68.23 Body mass index [BMI] 23.0-23.9, adult; Z79.899 Other long term (current) drug therapy; Z98.890 Other specified postprocedural states; Z80.8 Family history of malignant neoplasm of other organs or systems; Z82.49 Family history of ischemic heart disease and other diseases of the circulatory system
CPT/HCPCS: 96376 ×2; 96365; 96366 ×3; 96367; 96372 ×3; 96375; 99284; 36415; 80053 ×2; 80048; 83605; 85025 ×2; 86140; 87040; 73130; G0378 ×3; J2543; J3370; J0690 ×3; J1170 ×2; J7515 ×2; J1644 ×3; 99285

== ENCOUNTER → 2022-08-28 | Outpatient (CLI) | payer MEDICARE ==
--- NOTE | 2022-08-28 17:08 | US ---
EXAMINATION TYPE: US kidneys/renal and bladder DATE OF EXAM: 08/28/2022 COMPARISON: US 11/27/2012 CLINICAL INDICATION: Male, 66 years old with history of N18.32CHRONIC KIDNEY DISEASE, STAGE 3B; CKD s tage 3B EXAM MEASUREMENTS: Right Kidney: 10.6 x 4.9 x 5.3 cm Left Kidney: 9.7 x 5.0 x 5.3 cm Right Kidney: Two anechoic areas seen, largest at upper/mid pole: 7.9 x 6.9 x 7.6 cm. Mid pole: 3.0 x 2.8 x 3.3 cm. Left Kidney: Anechoic area seen upper pole: 2.0 x 1.9 x 1.3 cm. Bladder: Appears wnl Bilateral Jets seen: Yes IMPRESSION: 1. No evidence for obstructive uropathy. 2. Right renal simple appearing cyst. 3. 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
== END | disposition home or self-care (01) ==
LOC: RADUSWWP 14:53
PROVIDERS: ATTEND Internal Medicine
DX: N18.32 Chronic kidney disease, stage 3b (principal); N28.1 Cyst of kidney, acquired
CPT/HCPCS: 76770